=== PATIENT | female | born 1980 | race Caucasian/White ===

== ENCOUNTER → 2023-11-24 12:22 | Outpatient (REF) | payer BC, SELFPAY | LOC: WDC 12:22 | PROVIDERS: ATTENDING PHYSICIAN Obstetrics & Gynecology | DX: Z12.31 Encounter for screening mammogram for malignant neoplasm of breast (principal) | CPT/HCPCS: 77063; 77067 ==

== ENCOUNTER → 2024-11-25 12:14 | Outpatient (REF) | payer OTHER, SELFPAY | LOC: WDC 12:14 | PROVIDERS: ATTENDING PHYSICIAN Obstetrics & Gynecology; FAMILY PHYSICIAN Internal Medicine | DX: Z12.31 Encounter for screening mammogram for malignant neoplasm of breast (principal) | CPT/HCPCS: 77063; 77067 ==